=== PATIENT | female | born 1935 | race Caucasian/White ===

== ENCOUNTER 2017-12-19 22:56 | Emergency (ER) | payer MEDICARE ==
--- NOTE | 2017-12-20 00:26 | ED ---
Complex/Multi-Sys Presentation - HPI Summary HPI Summary: This patient is a 81 year old F presenting to [facility] c/o elevated potassium levels in her blood. Pt was seen at [facility] for blood work prior to a knee replacement and was told her potassium was high at that she should have it rechecked on 12-19-17. She got this down ad received a call telling her that her potassium was even higher than the prior drawn and they recommended she seek medical attention. She states she is in no pain and has no other complaints at this time. - History Of Current Complaint Chief Complaint: EDGeneral Time Seen by Provider: 12/19/17 23:50 Hx Obtained From: Patient Onset/Duration: Still Present Timing: Constant Severity Currently: Mild Severity Initially: Moderate Location: Negative Associated Signs And Symptoms: Positive: Other - abnormal labs - Allergies/Home Medications Allergies/Adverse Reactions: Allergies Allergy/AdvReac Type Severity Reaction Status Date / Time Penicillins AdvReac Rash Verified 12/19/17 23:01 PMH/Surg Hx/FS Hx/Imm Hx Cardiovascular History: Reports: Hx Atrial Fibrillation Denies: Hx Cardiomegaly, Hx Congestive Heart Failure, Hx Embolism Respiratory History: Denies: Hx Chronic Obstructive Pulmonary Disease (COPD), Hx Cystic Fibrosis, Hx Pulmonary Edema Sensory History: Reports: Hx Contacts or Glasses Opthamlomology History: Reports: Hx Contacts or Glasses Infectious Disease History: No Infectious Disease History: Denies: Traveled Outside the [place] in Last 30 Days - Family History Known Family History: Positive: Cardiac Disease, Hypertension Negative: Seizure Disorder - Social History Alcohol Use: Daily Substance Use Type: Reports: None Smoking Status (MU): Never Smoked Tobacco Review of Systems Negative: Chest Pain Musculoskeletal: Negative Negative: Myalgia Skin: Negative Neurological: Negative Negative: Headache All Other Systems Reviewed And Are Negative: Yes Physical Exam - Summary Physical Exam Summary: VITAL SIGNS: Reviewed. GENERAL: Patient is a well-developed and nourished female who is lying comfortable in the stretcher. Patient is not in any acute respiratory distress. HEAD AND FACE: No signs of trauma. No ecchymosis, hematomas or skull depressions. No sinus tenderness. EYES: PERRLA, EOMI x 2, No injected conjunctiva, no nystagmus. EARS: Hearing grossly intact. Ear canals and tympanic membranes are within normal limits. MOUTH: Oropharynx within normal limits. NECK: Supple, trachea is midline, no adenopathy, no JVD, no carotid bruit, no c- spine tenderness, neck with full ROM. CHEST: Symmetric, no tenderness at palpation LUNGS: Clear to auscultation bilaterally. No wheezing or crackles. CVS: irregular rhythm , S1 and S2 present, no murmurs or gallops appreciated. ABDOMEN: Soft, non-tender. No signs of distention. No rebound no guarding, and no masses palpated. Bowel sounds are normal. EXTREMITIES: FROM in all major joints, no edema, no cyanosis or clubbing. NEURO: Alert and oriented x 3. No acute neurological deficits. Speech is normal and follows commands. SKIN: Dry and warm Triage Information Reviewed: Yes Vital Signs On Initial Exam: Initial Vitals Temp Pulse Resp BP Pulse Ox 97.8 F 72 18 147/109 95 12/19/17 22:57 12/19/17 22:57 12/19/17 22:57 12/19/17 22:57 12/19/17 22:57 Vital Signs Reviewed: Yes Diagnostics - Vital Signs Vital Signs Temp Pulse Resp BP Pulse Ox 12/19/17 22:57 97.8 F 72 18 147/109 95 - Laboratory Result Diagrams: 12/20/17 00:08 12/20/17 00:08 Lab Statement: Any lab studies that have been ordered have been reviewed, and results considered in the medical decision making process. Complex Multi-Symp Course/Dx Assessment/Plan: This patient is a 81 year old F presenting to [facility] c/o elevated potassium levels in her blood. Pt was seen at [facility] for blood work prior to a knee replacement and was told her potassium was high at that she should have it rechecked on 12-19-17. She got this down ad received a call telling her that her potassium was even higher than the prior drawn and they recommended she seek medical attention. She states she is in no pain and has no other complaints at this time. . Potassium is 5 in the ed. This is normal she was advised to discuss with PCP about stopping her spironolactone and valsartan and replacing with other med because this could the reason for hyperkalemia. Blood work obtained. Patient will be discharged and follow up from PCP. The patient is agreeable with this plan. - Diagnoses Provider Diagnoses: Hyperkalemia Discharge - Sign-Out/Discharge Documenting (check all that apply): Patient Departure - Discharge Plan Condition: Stable Disposition: HOME Patient Education Materials: Hyperkalemia (ED) Referrals: Ok George MD [Primary Care Provider] - Additional Instructions: Please talk to you PCP about stopping your valsartan and spironolactone they could be causing your hyperkalemia. RETURN TO THE EMERGENCY DEPARTMENT FOR CHANGING OR WORSENING SYMPTOMS. FOLLOW UP WITH PCP IN 1-2 DAYS. - Attestation Statements Document Initiated by Scribe: Yes Documenting Scribe: Cirilo Bruno Provider For Whom Scribe is Documenting (Include Credential): Paul Rangel MD Scribe Attestation: ICirilo , scribed for Paul Rangel MD on 12/20/17 at 0116.
[2017-12-20 00:27] LABS: ABS Basophils 0 10^3/ul (0-0.2); ABS Eosinophils 0.1 10^3/ul (0-0.6); ABS Lymphocytes 0.2 10^3/ul (1.0-4.8); ABS Monocytes 0.7 10^3/ul (0-0.8); ABS Neutrophils 4.2 10^3/ul (1.5-7.7); ABS Nucleated RBC 0 10^3/ul; Eosinophil % 1.8 % (0-6); Hematocrit 40 % (35-47); Hemoglobin 13.5 g/dl (12.0-16.0); INR 1.33 (0.77-1.02); Lymphocyte % 3.8 % (25-47); Mean Corpuscular HGB Conc 34 g/dl (31-36); Mean Corpuscular Hemoglobin 35 pg (27-31); Mean Corpuscular Volume 102 fL (80-97); Mean Platelet Volume 7.2 um3 (7.4-10.4); Nucleated Red Blood Cells % 0; Platelet Count 184 10^3/ul (150-450); Red Cell Distribution Width 14 % (10.5-15); White Blood Count 5.3 10^3/ul (3.5-10.8)
[2017-12-20 00:35] LABS: EGFR Non-African American 78.6 (>60)
[2017-12-20 01:32] VITALS: BP 113/67
== END 2017-12-20 01:32 | disposition home or self-care (01) ==
LOC: ED 22:56
DX: E87.5 Hyperkalemia (principal)
CPT/HCPCS: 36415; 80053; 85025; 85610; 85730; 99282

== ENCOUNTER → 2018-04-21 11:34 | Emergency (ER) | payer MEDICARE ==
[~2018-04-21 11:34] MED LIST: DOXYcycline CAP(*) 100 MG PO ONE; Tetan/Diph/Pertus SYR(Tdap)* 0.5 ML SYR(BOOSTRIX) use SYR IM ONE
[2018-04-21 13:50] VITALS: BP 152/74
--- NOTE | 2018-04-21 17:59 | ED ---
Lower Extremity - HPI Summary HPI Summary: Patient is an 82-year-old female who presents emergency department for laceration to left lower leg that occurred just yesterday evening around 1999. Patient states that she was sitting on a recliner at home when her small dog jumped up onto recliner and cut her left lower leg with its claws. Patient states she is on Plavix and wound bled quite a bit initially. She was able to apply pressure and bleeding stopped. Patient is unaware of her last tetanus immunization. She is ambulatory without pain. Symptoms are mild in severity. Touching the affected area makes symptoms worse. Rest makes symptoms better. No history of diabetes. - History of Current Complaint Chief Complaint: EDAnimalBite Stated Complaint: LEFT LEG INJURY Time Seen by Provider: 04/21/18 14:51 Hx Obtained From: Patient Pain Intensity: 3 Pain Scale Used: 0-10 Numeric - Allergies/Home Medications Allergies/Adverse Reactions: Allergies Allergy/AdvReac Type Severity Reaction Status Date / Time Penicillins AdvReac Rash Verified 12/19/17 23:01 PMH/Surg Hx/FS Hx/Imm Hx Previously Healthy: Yes Cardiovascular History: Reports: Hx Atrial Fibrillation Denies: Hx Cardiomegaly, Hx Congestive Heart Failure, Hx Embolism Respiratory History: Denies: Hx Chronic Obstructive Pulmonary Disease (COPD), Hx Cystic Fibrosis, Hx Pulmonary Edema Sensory History: Reports: Hx Contacts or Glasses Opthamlomology History: Reports: Hx Contacts or Glasses Infectious Disease History: No Infectious Disease History: Denies: Traveled Outside the [place] in Last 30 Days - Family History Known Family History: Positive: Cardiac Disease, Hypertension Negative: Seizure Disorder - Social History Occupation: Retired Lives: Alone Alcohol Use: Rare Alcohol Amount: last drink 12/13 Substance Use Type: Reports: None Smoking Status (MU): Never Smoked Tobacco Review of Systems Constitutional: Negative Negative: Fever, Chills Positive: Other - wound to left lower leg All Other Systems Reviewed And Are Negative: Yes Physical Exam Triage Information Reviewed: Yes Vital Signs On Initial Exam: Initial Vitals Temp Pulse Resp BP Pulse Ox 97.8 F 86 18 171/111 97 04/21/18 11:41 04/21/18 11:41 04/21/18 11:41 04/21/18 11:41 04/21/18 11:41 Vital Signs Reviewed: Yes Appearance: Positive: Well-Appearing - Pt. sitting up in bed in NAD. Pleasant. Family friends present. Skin: Positive: Warm, Dry Head/Face: Positive: Normal Head/Face Inspection Eyes: Positive: Normal, EOMI Neck: Positive: Supple Musculoskeletal: Positive: Other - Notes to the left lateral lower leg there is a roughly 8 x8 cm triangular shaped superficial skin tear without bleeding. No surrounding erythema or edema. No drainage. No mckay tenderness. Full ROM of LEs. Neurological: Positive: Normal, CN Intact II-III Psychiatric: Positive: Affect/Mood Appropriate Diagnostics - Vital Signs Vital Signs Temp Pulse Resp BP Pulse Ox 04/21/18 15:54 98.3 F 92 16 152/74 100 04/21/18 13:48 98.3 F 96 18 152/74 100 04/21/18 11:41 97.8 F 86 18 171/111 97 - Laboratory Lab Statement: Any lab studies that have been ordered have been reviewed, and results considered in the medical decision making process. Lower Extremity Course/Dx - Course Course Of Treatment: Pt. presenting for superficial skin flap after being scratched by her dog. Xrays per radiology: REPORT AND IMPRESSION: #. Negative for fracture or malalignment. Bone density appears decreased throughout. #. Soft tissue contour irregularity at the lateral proximal aspect punctate submillimeter. radiopaque density in the same region may represent debris on the skin or a superficial. foreign body. No subcutaneous emphysema evident. Would was extensively irrigated and cleaned with saline and hibiclens by electronic service technician. Sterile dressing placed. Tetanus was updated. No signs of infection at this time. Pt. with PNC allergy, will start on doxycycyline. Advised to see her PCP on Tuesday or Tuesday for a wound check. To clean would with warm soap and water. Family friends able to help with wound dressings. Can apply ice and elevation. To return to ER over the weekend for redness, swelling, drainage, increased pain, fever, or if concerned. Pt. understands and agrees with plan. - Diagnoses Differential Diagnosis/HQI/PQRI: Positive: Cellulitis, Fracture (Closed), Infection, Puncture Wound, Sprain, Strain Provider Diagnoses: Superficial wound, Dog scratch Discharge - Sign-Out/Discharge Documenting (check all that apply): Patient Departure - Discharge Plan Condition: Good Disposition: HOME Prescriptions: DOXYcycline CAP(*) [DOXYcycline 100MG CAP(*)] 100 mg PO BID #20 cap Patient Education Materials: Animal Bite (ED), Acute Wound Care (ED) Referrals: Ok George MD [Primary Care Provider] - Additional Instructions: Call PCP today to schedule an appointment for wound check for Tuesday or Tuesday Take antibiotic as directed Clean wound twice a day with warm water and soap Can apply neosporin as directed Ice and elevate leg intermittently Return to ER for redness, swelling, yellow/foul smelling drainage, fever, vomiting or if concerned - Billing Disposition and Condition Condition: GOOD Disposition: Home
== END | disposition home or self-care (01) ==
LOC: ED 11:34
DX: S81.812A Laceration without foreign body, left lower leg, initial encounter (principal); W54.1XXA Struck by dog, initial encounter; Y92.9 Unspecified place or not applicable; Z88.0 Allergy status to penicillin; Z79.01 Long term (current) use of anticoagulants
CPT/HCPCS: 90471; 90715; 99283; A9270-GY

== ENCOUNTER → 2018-12-12 06:22 | Day surgery (SDC) | payer MEDICARE ==
[~2018-12-12 06:22] MED LIST changes: +Artificial Tear OPHTH.OINT* 3.5 GM ONE; +BSS OPTH.SOL* BTL ONE; +Buffered Lidocaine 1% SYRIN* 1 ML/SYRINGE INTRADERM ONE; +Bupivacaine 0.25% SDV PF* 10 ML VIAL INJ ONE; +Clindamycin 900 MG/D5W BAG(*) 900 MG/50 ML BAG IVPB ONE; -DOXYcycline CAP(*) 100 MG PO ONE; +Dexamethasone IV* 4 MG/ML 1 ML (4 MG) ONE; +Famotidine IV* 10 MG/ML 2 ML (20 mg) IV ONE; +Famotidine IV* 10 MG/ML 2 ML (20 mg) ONE; +KETAMINE HCL* 50 MG/ML 10 ML VIAL ONE; +Lactated Ringers 1000 ML Bag* 1,000 ML IV SCH; +Lidocaine 1% w EPI 1:100,000* MDV 20 ML VIAL ONE; +Lidocaine 2% PF * 5 ML VIAL ONE; +Methylene Blue 0.5 %* 50 MG/10 ML AMP IV ONE; +Midazolam* 1 MG/ML 5 ML VIAL (5 MG) ONE; +Mineral Oil Sterile, TOPICAL* 25 ML BTL ONE; +Naloxone* 0.4 MG/ML 1 ML VIAL IV PRN; +Ondansetron INJ* 2 MG/ML VIAL ONE; +Ondansetron ODT TAB* 4 MG PO PRN; +Propofol* 10 MG/ML 20 ML BTL ONE; -Tetan/Diph/Pertus SYR(Tdap)* 0.5 ML SYR(BOOSTRIX) use SYR IM ONE; +fentaNYL* 50 MCG/ML 2 ML VIAL (100 MCG VIAL) IV PRN; +fentaNYL* 50 MCG/ML 2 ML VIAL (100 MCG VIAL) ONE
[2018-12-12 10:48] VITALS: BP 124/66
== END | disposition home or self-care (01) ==
LOC: OR 06:22
PROVIDERS: ATTEND Plastic Surgery
DX: C44.319 Basal cell carcinoma of skin of other parts of face (principal); I25.10 Atherosclerotic heart disease of native coronary artery without angina pectoris; Z95.5 Presence of coronary angioplasty implant and graft; I10 Essential (primary) hypertension; I48.91 Unspecified atrial fibrillation; M19.90 Unspecified osteoarthritis, unspecified site; Z79.01 Long term (current) use of anticoagulants
CPT/HCPCS: 88305; 88331; 88332; A9270-GY; J1100; J2250; J2405; J2704; J3010; J3490